=== PATIENT | female | born 1985 | race Two or more races ===

== ENCOUNTER 2024-06-16 11:32 | Outpatient (CLI) | payer OTHER | END 2024-06-16 11:33 | disposition home or self-care (01) | LOC: PRENATAL 11:32 | PROVIDERS: ATTEND Obstetrics & Gynecology Maternal & Fetal Medicine | DX: O36.80X0 Pregnancy with inconclusive fetal viability, not applicable or unspecified (principal); Z36.82 Encounter for antenatal screening for nuchal translucency; Z14.8 Genetic carrier of other disease; O09.529 Supervision of elderly multigravida, unspecified trimester; Z3A.12 12 weeks gestation of pregnancy ==

== ENCOUNTER 2024-08-07 13:15 | Outpatient (CLI) | payer OTHER | END 2024-08-07 13:16 | disposition home or self-care (01) | LOC: PRENATAL 13:15 | PROVIDERS: ATTEND Obstetrics & Gynecology Maternal & Fetal Medicine | DX: O44.00 Complete placenta previa NOS or without hemorrhage, unspecified trimester (principal); O09.529 Supervision of elderly multigravida, unspecified trimester; Z3A.19 19 weeks gestation of pregnancy ==

== ENCOUNTER 2024-08-25 19:43 | Outpatient (CLI) | payer OTHER ==
[2024-08-25 19:00] VITALS: BP 101/66
[2024-08-25] MEDS ORDERED: RINGERS SOLUTION,LACTATED 1,000 ML IV SCH (20:00)
[2024-08-25] MEDS ORDERED: ACETAMINOPHEN 500 MG GEL..CAP PO PRN (20:00)
[2024-08-25 20:15] LABS: URINE APPEARANCE Clear; URINE BILIRRUBIN Negative (NEGATIVE); URINE BLOOD Negative; URINE COLOR Yellow; URINE GLUCOSE Negative (NEGATIVE); URINE KETONE Negative (NEGATIVE); URINE LEUKOCYTE Negative; URINE NITRATE Negative; URINE PROTEIN Negative (NEGATIVE); URINE UROBILINOGEN 0.2 E.U./dl
[2024-08-25 20:16] LABS: HEMATOCRIT 33.6 % (36.0-45.00); HEMOGLOBIN 11.5 g/dL (12.0-15.00); MEAN CELL VOLUME 92.4 fL (80.00-100.00); MEAN CORPUSCULAR HEMOGLOBIN 31.7 pg (27.00-32.0); MEAN CORPUSCULAR HGB CONC 34.3 g/dl (32.0-36.0); PLATELET COUNT 246 K/uL (150-450); RED BLOOD COUNT 3.64 M/uL (4.00-6.00); RED CELL DISTRIBUTION WIDTH 12.8 % (11.5-14.5); URINE BACTERIA 85.6 uL (0.0-1933); URINE EPITHELIAL CELLS 3.9 uL (0.0-38.8); URINE WBC 3.6 uL (0.0-23.2)
[2024-08-25 20:17] LABS: URINE CAST 0.58 uL (0.0-1.40); URINE RBC 0.4 uL (0.0-20.8)
[2024-08-25] MEDS ORDERED: CYCLOBENZAPRINE HCL 5 MG TABLET PO ONE (21:15)
[2024-08-25 23:29] VITALS: BP 93/60
[2024-08-26 06:02] VITALS: BP 90/60; O2SAT 98
[2024-08-26 10:00] VITALS: BP 90/60
== END 2024-08-26 10:20 | disposition home or self-care (01) ==
LOC: OBS/DEL 19:43
PROVIDERS: ATTEND General Practice
DX: O26.892 Other specified pregnancy related conditions, second trimester (principal); R10.2 Pelvic and perineal pain; Z3A.22 22 weeks gestation of pregnancy

== ENCOUNTER 2024-11-03 14:52 | Outpatient (CLI) | payer OTHER | END 2024-11-03 14:53 | disposition home or self-care (01) | LOC: PRENATAL 14:52 | PROVIDERS: ATTEND Obstetrics & Gynecology Maternal & Fetal Medicine | DX: O26.849 Uterine size-date discrepancy, unspecified trimester (principal); O36.8199 Decreased fetal movements, unspecified trimester, other fetus; O09.529 Supervision of elderly multigravida, unspecified trimester; Z3A.32 32 weeks gestation of pregnancy ==

== ENCOUNTER 2024-11-13 16:25 | Outpatient (CLI) | payer OTHER ==
[2024-11-13 15:37] VITALS: BP 98/68
[2024-11-13] MEDS ORDERED: RINGERS SOLUTION,LACTATED 1,000 ML IV SCH (20:15)
[2024-11-13 20:54] VITALS: BP 104/68
[2024-11-13 20:54] LABS: BASO % 0.1 % (0.1-1.2); EOS # 0.06 (0.04-0.54); EOS % 0.6 % (0.7-7.0); LYMPH # 1.62 (1.18-3.74); LYMPH % 15.1 % (19.3-53.1); MEAN PLATELET VOLUME 9.80 fl (9.4-12.4); MONO # 0.66 (0.24-0.82); MONO % 6.2 % (4.7-12.5); NEUT # 8.30 (1.56-6.13); NEUT % 77.5 % (34.0-71.1); RED CELL DISTRIBUTION WIDTH 13.7 % (11.6-14.4)
[2024-11-13 20:55] LABS: URINE APPEARANCE Clear; URINE BILIRRUBIN Negative (NEGATIVE); URINE BLOOD Negative; URINE COLOR Yellow; URINE KETONE Negative (NEGATIVE); URINE LEUKOCYTE Negative; URINE NITRATE Negative; URINE PROTEIN Negative (NEGATIVE); URINE UROBILINOGEN 0.2 E.U./dl
[2024-11-13 21:13] LABS: URINE BACTERIA 2477.6 uL (0.0-1933); URINE EPITHELIAL CELLS 14.4 uL (0.0-38.8); URINE RBC 3.5 uL (0.0-20.8); URINE WBC 58.4 uL (0.0-23.2)
[2024-11-13 21:14] LABS: INR 0.94
[2024-11-13 21:21] LABS: ALT/SGPT 38.0 U/L (12-78); AST/SGOT 21.0 U/L (15-37); BILIRUBIN TOTAL 0.29 mg/dL (0.3-1.2); BUN CREA RATIO 15.0 (7.0-25.0); CREATININE SERUM 0.62 mg/dL (0.55-1.02); GFR 107.73; GLOBULINA 3.6 G/DL (2.4-3.5); GLUCOSE FASTING 113.0 mg/dL (65-100); OSMOLALITY SERUM 279.0 MOSM/KG (275-295)
[2024-11-13 21:36] LABS: URINE CAST 0.43 uL (0.0-1.40); URINE GLUCOSE 100 MG/DL (NEGATIVE)
[2024-11-13 23:12] VITALS: BP 95/63
[2024-11-14 03:38] VITALS: BP 97/64
[2024-11-14 06:14] VITALS: BP 92/63; O2SAT 98
[2024-11-14] MEDS ORDERED: SOD FERRIC GLUC COMPLX/SUCROSE 62.5 MG/5 ML AMPUL IV NR (10:30)
[2024-11-14 12:24] VITALS: BP 89/58
[2024-11-14 14:14] VITALS: BP 90/60
== END 2024-11-14 14:14 | disposition home or self-care (01) ==
LOC: OBS/DEL 16:25
PROVIDERS: ATTEND General Practice
DX: O36.8130 Decreased fetal movements, third trimester, not applicable or unspecified (principal); Z3A.33 33 weeks gestation of pregnancy

== ENCOUNTER 2024-12-03 10:13 | Outpatient (CLI) | payer OTHER | END 2024-12-03 10:14 | disposition home or self-care (01) | LOC: PRENATAL 10:13 | PROVIDERS: ATTEND Obstetrics & Gynecology Maternal & Fetal Medicine | DX: O26.849 Uterine size-date discrepancy, unspecified trimester (principal); O36.8199 Decreased fetal movements, unspecified trimester, other fetus; O09.529 Supervision of elderly multigravida, unspecified trimester; O36.5990 Maternal care for other known or suspected poor fetal growth, unspecified trimester, not applicable or unspecified; Z3A.35 35 weeks gestation of pregnancy ==

== ENCOUNTER 2024-12-12 13:30 | Inpatient (IN) | payer OTHER ==
[~2024-12-12] VITALS: Ht 160 cm; Wt 2.7 kg
[2024-12-12 12:52] LABS: URINE APPEARANCE Clear; URINE BACTERIA 65.9 uL (0.0-1933); URINE BILIRRUBIN Negative (NEGATIVE); URINE BLOOD Negative; URINE COLOR Yellow; URINE EPITHELIAL CELLS 7.0 uL (0.0-38.8); URINE KETONE Trace (NEGATIVE); URINE LEUKOCYTE Negative; URINE NITRATE Negative; URINE PROTEIN Negative (NEGATIVE); URINE UROBILINOGEN 1.0 E.U./dl; URINE WBC 2.9 uL (0.0-23.2)
[2024-12-12 12:53] LABS: BASO % 0.2 % (0.1-1.2); EOS # 0.05 (0.04-0.54); EOS % 0.5 % (0.7-7.0); LYMPH # 1.06 (1.18-3.74); LYMPH % 11.4 % (19.3-53.1); MEAN PLATELET VOLUME 10.10 fl (9.4-12.4); MONO # 0.63 (0.24-0.82); MONO % 6.8 % (4.7-12.5); NEUT # 7.52 (1.56-6.13); NEUT % 80.7 % (34.0-71.1); RED CELL DISTRIBUTION WIDTH 14.8 % (11.6-14.4)
[2024-12-12 12:54] LABS: URINE CAST 0.00 uL (0.0-1.40); URINE GLUCOSE 100 MG/DL (NEGATIVE); URINE RBC 1.4 uL (0.0-20.8)
[2024-12-12 13:17] LABS: INR < 0.93
[2024-12-12 13:26] LABS: ALT/SGPT 39.0 U/L (12-78); AST/SGOT 22.0 U/L (15-37); BILIRUBIN TOTAL 0.36 mg/dL (0.3-1.2); BUN CREA RATIO 18.0 (7.0-25.0); CREATININE SERUM 0.57 mg/dL (0.55-1.02); GFR 118.7; GLOBULINA 4.0 G/DL (2.4-3.5); GLUCOSE FASTING 74.0 mg/dL (65-100); OSMOLALITY SERUM 275.0 MOSM/KG (275-295)
[2024-12-22 18:46] VITALS: BP 92/67
[2024-12-22] MEDS ORDERED: RINGERS SOLUTION,LACTATED 1,000 ML IV SCH (20:00)
[2024-12-22] MEDS ORDERED: MISOPROSTOL 25 MCG TABLET VAG ONE (20:45)
[2024-12-22] MEDS ORDERED: AMPICILLIN SODIUM 2,000 MG VIAL IV ONE (21:00)
[2024-12-22] MEDS ORDERED: PRENATA CHEWAB1 EACH PO (21:07)
[2024-12-22] MEDS ORDERED: VALTREX1000 MG PO (21:07)
[2024-12-22] MEDS ORDERED: FERROUS SULFAT325 M2 PO (21:09)
[2024-12-22 23:47] VITALS: BP 97/66
[2024-12-23] MEDS ORDERED: AMPICILLIN SODIUM 1,000 MG VIAL IV SCH (01:00)
[2024-12-23] MEDS ORDERED: AMPICILLIN SODIUM IV SCH (01:00)
[2024-12-23 04:43] VITALS: BP 104/67
[2024-12-23] MEDS ORDERED: OXYTOCIN 500 ML IV SCH (06:45)
[2024-12-23 07:29] VITALS: BP 114/71
[2024-12-23 11:49] VITALS: BP 117/63; BP 117/693
[2024-12-23] MEDS ORDERED: ERYTHROMYCIN BASE OPHT 1GM EACH TUBE OP ONE (14:45)
[2024-12-23] MEDS ORDERED: OXYTOCIN 10 UNITS/ML VIAL IV ONE (14:45)
[2024-12-23] MEDS ORDERED: CEFAZOLIN SODIUM 1,000 MG VIAL IV SCH (14:45)
[2024-12-23] MEDS ORDERED: MORPHINE SULFATE 4 MG/ML VIAL IV ONE ×2 (15:30→18:00)
[2024-12-23] MEDS ORDERED: OxyCODONE HCL 5 MG TABLET (ROXICODONE) PO SCH (16:42)
[2024-12-23] MEDS ORDERED: CHLORHEXIDINE GLUCONATE 120 ML BOTTLE TP SCH (16:45)
[2024-12-23] MEDS ORDERED: RINGERS SOLUTION,LACTATED 1,000 ML IV SCH (16:45)
[2024-12-23] MEDS ORDERED: OXYTOCIN 1,000 ML IV SCH (16:45)
[2024-12-23] MEDS ORDERED: DOCUSATE SODIUM 100MG CAP PO SCH (17:00)
[2024-12-23 19:19] VITALS: BP 122/73
[2024-12-24] VITALS: BP 102/62
[2024-12-24] MEDS ORDERED: MORPHINE SULFATE 4 MG/ML CARTRIDGE IV PRN (02:30)
[2024-12-24 08:52] VITALS: BP 105/70
[2024-12-24] MEDS ORDERED: ACETAMINOPHEN 500 MG GEL..CAP PO SCH (09:00)
[2024-12-24 11:34] LABS: BASO % 0.1 % (0.1-1.2); EOS # 0.03 (0.04-0.54); EOS % 0.3 % (0.7-7.0); LYMPH # 0.81 (1.18-3.74); LYMPH % 7.5 % (19.3-53.1); MEAN PLATELET VOLUME 10.30 fl (9.4-12.4); MONO # 0.38 (0.24-0.82); MONO % 3.5 % (4.7-12.5); NEUT # 9.57 (1.56-6.13); NEUT % 88.3 % (34.0-71.1); RED CELL DISTRIBUTION WIDTH 14.8 % (11.6-14.4)
[2024-12-24 12:16] VITALS: BP 104/70
[2024-12-24 17:38] VITALS: BP 95/60
[2024-12-25 00:32] VITALS: BP 95/62
[2024-12-25 08:00] VITALS: BP 97/67
[2024-12-25 19:08] VITALS: BP 101/68
[2024-12-25] MEDS ORDERED: OxyCODONE HCL 5 MG TABLET (ROXICODONE) PO SCH (20:00)
[2024-12-26 00:20] VITALS: BP 99/66
[2024-12-26 08:00] VITALS: BP 103/69
== END 2024-12-26 18:10 | disposition home or self-care (01) | DRG 788 ==
LOC: LDR 12-22 19:16 → O/R 12-23 12:53 → OB/GYN 12-23 13:58
PROVIDERS: ADMIT Student in an Organized Health Care Education/Training Program; ATTEND Student in an Organized Health Care Education/Training Program
PROC: 4A1HXCZ Monitoring of Products of Conception, Cardiac Rate, External Approach (ICD-10-PCS; 2024-12-22)
PROC: 3E0P7VZ Introduction of Hormone into Female Reproductive, Via Natural or Artificial Opening (ICD-10-PCS; 2024-12-22)
PROC: 3E033VJ Introduction of Other Hormone into Peripheral Vein, Percutaneous Approach (ICD-10-PCS; 2024-12-23)
PROC: 10D00Z1 Extraction of Products of Conception, Low, Open Approach (ICD-10-PCS; principal; 2024-12-23 11:00)
DX: O82 Encounter for cesarean delivery without indication (principal); O99.824 Streptococcus B carrier state complicating childbirth; O69.81X0 Labor and delivery complicated by cord around neck, without compression, not applicable or unspecified; Z3A.39 39 weeks gestation of pregnancy; Z37.0 Single live birth